=== PATIENT | male | born 1955 | race Caucasian/White ===

== ENCOUNTER 2018-07-09 13:26 | Outpatient (CLI) | payer BC ==
[2018-07-09 14:26] LABS: BASOPHILS % (AUTO) 0.4 % (0-1); EOSINOPHILS # (AUTO) 0.2 X10'3 (0-0.9); EOSINOPHILS % (AUTO) 2.7 % (0-6); HEMATOCRIT 48.7 % (42.0-52.0); HEMOGLOBIN 16.4 g/dl (14.0-17.9); LYMPHOCYTES # (AUTO) 1.1 X10'3 (1.1-4.8); LYMPHOCYTES % (AUTO) 15.4 % (21-51); MEAN CORPUSCULAR HEMOGLOBIN 31.2 PG (27.0-31.0); MEAN CORPUSCULAR HGB CONC 33.6 g/dL (33.0-36.5); MEAN CORPUSCULAR VOLUME 92.8 FL (78-98); MEAN PLATELET VOLUME 8.3 FL (7.4-10.4); MONOCYTES # (AUTO) 0.8 X10'3 (0-0.9); MONOCYTES % (AUTO) 10.6 % (2-12); NEUTROPHILS # (AUTO) 5.2 X10'3 (1.8-7.7); NEUTROPHILS % (AUTO) 70.9 % (42-75); PLATELET COUNT 233 X10'3 (140-440); RED BLOOD COUNT 5.25 X10'6 (4.70-6.10); RED CELL DISTRIBUTION WIDTH 13.9 % (11.5-14.5); WHITE BLOOD COUNT 7.3 X10'3 (4.5-11.0)
[2018-07-09 14:50] LABS: INR 1.1 INR; PARTIAL THROMBOPLASTIN TIME 27 SECONDS (22-32)
[2018-07-09 15:01] LABS: ALANINE AMINOTRANSFERASE 66 U/L (12-78); ALBUMIN 3.5 G/DL (3.4-5.0); ALKALINE PHOSPHATASE 76 IU/L (46-116); ANION GAP 6 (8-16); ASPARTATE AMINO TRANSFERASE 20 U/L (10-37); BILIRUBIN,TOTAL 0.5 MG/DL (0.1-1.0); BLOOD UREA NITROGEN 13 MG/DL (7-18); BUN/CREATININE RATIO 14.6 (5.4-32.0); CALCIUM 8.8 MG/DL (8.5-10.1); CHLORIDE 106 MMOL/L (99-107); CREATININE 0.89 MG/DL (0.60-1.10); GLUCOSE 90 MG/DL (70-104); SODIUM 140 MMOL/L (135-145); TOTAL CARBON DIOXIDE 28.5 MMOL/L (24-32); TOTAL PROTEIN 7.1 G/DL (6.4-8.2); eGFR 86 ML/MIN
== END 2018-07-09 23:59 | disposition home or self-care (01) ==
LOC: LAB 13:26
PROVIDERS: ATTEND Otolaryngology
DX: D69.1 Qualitative platelet defects (principal)
CPT/HCPCS: 36415; 80053; 85025; 85576; 85610; 85730

== ENCOUNTER 2020-06-13 11:03 | Day surgery (SDC) | payer MEDICARE, BC ==
[2020-06-13] VITALS (12 sets, daily range): BP systolic 109–152; BP diastolic 60–88
[~2020-06-13] VITALS: Ht 182.9 cm; Wt 102.6 kg
[2020-06-13] MEDS ORDERED: nitroGLYCERIN 0.4mg SUBLingual tab SL PRN (11:25)
[2020-06-13] MEDS ORDERED: NEBI5TAB10 PO (11:28)
[2020-06-13] MEDS ORDERED: FLO0.4C PO (11:28)
[2020-06-13] MEDS ORDERED: MESA0.374 PO (11:28)
[2020-06-13] MEDS ORDERED: diphenhydrAMINE 25mg capsule PO PRN (11:30)
[2020-06-13] MEDS ORDERED: LORazepam 0.5 MG tablet PO PRN (11:30)
[2020-06-13] MEDS ORDERED: normal saline 1,000 ML IV SCH (11:30)
[2020-06-13] MEDS ORDERED: LANS30CA37 PO (11:32)
[2020-06-13] MEDS ORDERED: LOPE-144 PO (11:32)
[2020-06-13] MEDS ORDERED: ASPI-1265 PO (11:32)
[2020-06-13] MEDS ORDERED: ATOR10TA87 PO (11:32)
[2020-06-13] MEDS ORDERED: NATURES BOUNTY (11:36)
[2020-06-13] MEDS ORDERED: MULT-1085 PO (11:36)
[2020-06-13] MEDS ORDERED: FISH OIL (11:36)
[2020-06-13] MEDS ORDERED: VITC500T PO (11:36)
[2020-06-13] MEDS ORDERED: MUPI22OI30 TOP (11:36)
[2020-06-13 12:06] LABS: TROPONIN I < 0.04 NG/ML (0.0-0.05)
[2020-06-13] MEDS ORDERED: LIDOcaine 1% (10mg/ml)w/preservative injection 20ml MDV ONE (12:06)
[2020-06-13] MEDS ORDERED: iohexol 350 MG/ML 50ML vial IV ONE (12:06)
[2020-06-13] MEDS ORDERED: midazolam 1 mg/ML 2ml injection ONE (12:06)
[2020-06-13] MEDS ORDERED: fentaNYL/PF 50MCG/1 ML 2ML syringe ONE (12:06)
[2020-06-13] MEDS ORDERED: iohexol 350MG/ML 100ml bottle IV ONE (12:06)
[2020-06-13] MEDS ORDERED: proCHLORperazine 10 MG/2 ml inj ONE (12:31)
[2020-06-13] MEDS ORDERED: proCHLORperazine 10 MG/2 ml inj IV PRN (13:40)
[2020-06-13] MEDS ORDERED: HYDROcodone/acetaminophen 10/325mg tab PO PRN (13:40)
[2020-06-13] MEDS ORDERED: ondansetron/PF 4mg/2ml inj IV PRN (13:40)
[2020-06-13] MEDS ORDERED: HYDROcodone/acetaminophen 5mg/325mg tablet PO PRN (13:40)
[2020-06-13] MEDS ORDERED: OXAZEpam 15mg capsule PO PRN (13:40)
[2020-06-13] MEDS ORDERED: acetaminophen 325mg tablet PO PRN (13:40)
== END 2020-06-13 19:55 | disposition home or self-care (01) ==
LOC: SSTAY O 11:03
PROVIDERS: ATTEND Internal Medicine Cardiovascular Disease
DX: R94.39 Abnormal result of other cardiovascular function study (principal); I25.10 Atherosclerotic heart disease of native coronary artery without angina pectoris; I10 Essential (primary) hypertension; Z87.19 Personal history of other diseases of the digestive system; Z88.8 Allergy status to other drugs, medicaments and biological substances; E78.5 Hyperlipidemia, unspecified; N40.0 Benign prostatic hyperplasia without lower urinary tract symptoms; Z87.442 Personal history of urinary calculi; Z98.890 Other specified postprocedural states; Z79.82 Long term (current) use of aspirin; Z79.899 Other long term (current) drug therapy; Z72.89 Other problems related to lifestyle
CPT/HCPCS: 36415; 84439; 84443; 84480; 84484; 93005; 93458; 99152; C1760; C1769; J0780; J1644; J2001; J2250; J3010; J7030; Q9967; A4620; A6258